=== PATIENT | female | born 1965 | race Caucasian/White ===

== ENCOUNTER → 2021-04-24 13:46 | Outpatient (CLI) | payer OTHER, SELFPAY ==
--- NOTE | 2021-04-24 | DI.US.S_ITS ---
PROCEDURE: US ABDOMEN COMPLETE INDICATIONS: LEFT UPPER QUADRANT PAIN TECHNIQUE: Real-time scanning was performed of the abdominal and retroperitoneal organs, with image documentation. COMPARISON: [facility], CT, ABD/PELVIS W/CON TRAUMA (PNL), 04/18/2011, 10:59. FINDINGS: Liver: Liver is normal in size and homogeneous in echotexture. Liver surface appears smooth. Gallbladder: Surgically absent. Biliary ducts: Intrahepatic bile ducts are non-dilated. Extrahepatic bile duct caliber measures 6 mm. Normal is 6-7 mm or less in diameter, or 10 mm or less post-cholecystectomy. Pancreas: Visualized portions of the pancreatic body are sonographically normal. The head and tail are not well seen. Spleen: Spleen is normal in size and homogeneous in echotexture. Measures 8.4 cm. Kidneys: Kidneys are normal in size and echotexture. Right kidney measures 10.5 cm long; left kidney measures 10.8 cm long. No hydronephrosis or nephrolithiasis. No solid masses. Right kidney superior pole cyst measuring 3 x 2.1 x 1.8 cm. (This cyst measures 3.[address] from 2010). There are several thin septations. Left kidney superior pole cyst measuring 1.4 x 1 x 0.9 cm. (this cyst measured 0.[address] from 2010). This cyst appears mildly complex. Mid left kidney anechoic cyst measuring 1.6 cm. Aorta: Visualized aorta is normal in caliber at less than 3 cm. Iliacs: Proximal common iliac arteries are normal in caliber at less than 2.5 cm. IVC: Intrahepatic inferior vena cava is patent. IMPRESSION: 1. Right kidney superior pole mildly complex cyst measuring 3 cm. A similar to decreased in size compared to CT from 2010. 2. Left kidney superior pole mildly complex cyst measuring 1.4 cm. May be slightly increased compared to 2011. 3. No hydronephrosis. 4. Post cholecystectomy. Dictated by: Osmar Mcnally M.D. on 04/24/2021 at 15:52 Approved by: Osmar Mcnally M.D. on 04/24/2021 at 16:00
== END ==
PROVIDERS: PCP Physician Assistant; Referring Provider Naturopath; Visit Provider Naturopath
DX: R10.12 Left upper quadrant pain (principal); N28.1 Cyst of kidney, acquired; Z90.49 Acquired absence of other specified parts of digestive tract
CPT/HCPCS: 76700